=== PATIENT | male | born 1995 | race Caucasian/White ===

== ENCOUNTER 2020-01-19 02:49 | Emergency (ER) | payer BC, OTHER ==
[~2020-01-19] VITALS: Ht 172.7 cm; Wt 56.8 kg
[2020-01-19] MEDS ORDERED: ONDANSETRON 4 MG (ZOFRAN) ORAL DISSOLVE TAB PO STA (03:20)
[2020-01-19] MEDS ORDERED: LORazepam 0.5 MG (ATIVAN) TABLET PO STA (03:20)
--- NOTE | 2020-01-19 03:36 | ED Upper Extremity ---
General Chief Complaint: Upper Extremity Stated Complaint: ANXIETY/RT WRIST INJURY Nursing Triage Note: pt reports he is recently unemployed, went out tonight with friends and started drinking beer and whiskey, also reports he smoked some "weed". Pt called ems because he was having an anxiety attack and also fell and injured right wrist, ems checked him out and and his instructed ems he would bring him to ed Nursing Sepsis Screen: No Definite Risk History of Present Illness Date Seen by Provider: Jan 19, 2020 Time Seen by Provider: 03:10 Initial Comments The patient is a 24-year-old male who is otherwise healthy. He presents for medical screening. He states he recently lost his job and has been "going through some things." Evidently, earlier overnight he smoked some marijuana and drank some alcohol with friends. He states it is quite unusual for him to use substances like this. Prior to arrival he fell onto his outstretched right hand from ground level and is now reporting some right wrist discomfort, mild. He is able to range his right wrist fully. He denies hitting head or neck or any other part of his body in the fall and there are no signs of trauma anywhere. He states prior to arrival he began feeling very anxious and states he feels very anxious now. He appears quite anxious here in the emergency department. He is nauseated but has not vomited. EMS were evidently called to the scene after he fell and was feeling very anxious but he declined transport and his instead drove him to the emergency department by private vehicle for evaluation. He denies fevers, upper respiratory congestion/rhinorrhea, cough, shortness of breath, chest pain of any kind, abdominal pain, flank pain, back pain. He denies suicidal or homicidal ideation, paranoid delusions, recent use of substances aside from alcohol and marijuana. He is ambulatory with a narrow, steady gait, alert and oriented and in no acute distress and vital signs are completely appropriate here. Blood glucose appropriate here as well. Allergies and Home Medications Allergies Coded Allergies: No Known Drug Allergies (Unverified , 01/19/20) Patient Home Medication List Home Medication List Reviewed: Yes Review of Systems Constitutional: see HPI All Other Systems Reviewed Negative Unless Noted: Yes (Negative excepted noted.) Past Ihfvrwm-Qnusri-Bgngmr Hx Past Med/Social Hx: Reviewed Nursing Past Med/Soc Hx Patient Social History Alcohol Use: Occasionally Uses Alcohol Beverage of Choice: Beer, [place] Recreational Drug Use: Yes Drug of Choice: marijuana Type Used: Smokeless Tobacco 2nd Hand Smoke Exposure: No Recent Foreign Travel: No Contact w/Someone Who Travel: No Recent Infectious Disease Expo: No Recent Hopitalizations: No Physical Abuse: No Sexual Abuse: No Mistreated: No Fear: No Seasonal Allergies Seasonal Allergies: No Past Medical History Surgeries: No Respiratory: No Cardiac: No Neurological: No Genitourinary: No Gastrointestinal: No Musculoskeletal: No Endocrine: No HEENT: No Cancer: No Psychosocial: No Integumentary: No Blood Disorders: No Family Medical History Reviewed Nursing Family Hx Physical Exam Vital Signs Vital Signs - First Documented 01/19/20 03:14 Temp 36.3 Pulse 75 Resp 16 B/P (MAP) 142/70 (94) Pulse Ox 97 O2 Delivery Room Air Capillary Refill : Less Than 3 Seconds Height, Weight, BMI Height: '" Weight: lbs. oz. kg; 19.00 BMI Method: General Appearance: no apparent distress This is an anxiousappearing 24-year-old male who appears nontoxic and in no acute distress. Head is normocephalic and atraumatic. Neck is supple and nontender. Oropharynx is moist. Lungs are clear to auscultation at all stations. There is a normal S1 and S2 without rubs or gallops and capillary refill is appropriate, less than 2 seconds globally. Abdomen is soft, nontender and nondistended. Skin is warm and dry without cyanosis, clubbing or edema. Psychiatrically, the patient demonstrates appropriate mood and affect and is a lert. From a musculoskeletal standpoint, evaluation of the right upper extremity is remarkable for mild tenderness to palpation over the radial aspect of the right wrist. There is full active and passive range of motion at the right wrist. No discomfort with ranging of any other joints of the upper extremity. The right upper extremity is neurovascularly intact distally with strength 5 out of 5, sensation intact to light touch in all nerve distributions, radial pulse 2+, capillary refill less than 2 seconds, hand warm and well-perfused. Progress/Results/Core Measures Results/Orders Lab Results Laboratory Tests Test 01/19/20 03:32 Range/Units Glucometer 108 70-110 MG/DL My Orders Orders - CORNELL ROSARIO MD Lorazepam Tablet (Ativan Tablet) (01/19/20 03:20) Ondansetron Oral Dissolve Tab (Zofran (01/19/20 03:20) Accucheck Stat ONCE (01/19/20 03:24) Wrist 3 View Right (01/19/20 03:29) Vital Signs/I&O 01/19/20 03:14 Temp 36.3 Pulse 75 Resp 16 B/P (MAP) 142/70 (94) Pulse Ox 97 O2 Delivery Room Air Blood Pressure Mean: 94 Progress Progress Note : Time: 03:39 Progress Note 24-year-old male, otherwise healthy, who presents for evaluation of anxiety and nausea in the aftermath of using alcohol and marijuana earlier overnight. Patient is alert and oriented 4, not clinically intoxicated and ambulatory with a narrow, steady gait here in the emergency department. Vital signs entirely reassuring. Aside from anxiety and some right wrist tenderness after a fall, clinical examination is reassuring. No clear evidence of emergency condition is identified. We'll give a small dose of Ativan and some Zofran for nausea and we'll check plain films of the right wrist and will then reevaluate. 0350: Patient is feeling quite a bit better after small dose of Ativan and some Zofran here in the emergency department. He is no longer acutely anxious and is resting comfortably upon reassessment. He states he feels ready to go home. As above, he is alert and oriented and is ambulatory with a narrow, steady gait here in the emergency department. Not clinically intoxicated at this time. is here to drive him home. We will proceed with discharge. He understands that if he feels worse is that of better or develops other new symptoms of concern that he will need to return to the emergency department immediately for reevaluation. All questions are answered. Initial ECG Impression: 3rd Degree AV Block Departure Impression Primary Impression: Marijuana abuse Additional Impressions: Acute anxiety Contusion of right wrist, initial encounter Disposition: 01 HOME, SELF-CARE Condition: Improved Departure-Patient Inst. Referrals: NO,LOCAL PHYSICIAN (PCP/Family) Primary Care Physician Patient Instructions: Marijuana Use and Addiction (DC) Add. Discharge Instructions: Follow-up very closely with your primary care physician in the office in the next 1-2 days for reevaluation of your symptoms and a discussion of next best steps in care. Do not smoke marijuana to reduce serious risks to your health, and do not use alcohol to excess in the future. Drink plenty of fluids and get plenty of rest. Return to the emergency department right away with worsening symptoms of any kind or with any other new symptoms of concern. CORNELL ROSARIO MD Jan 19, 2020 03:36
[2020-01-19 03:53] VITALS: BP 142/70
--- NOTE | 2020-01-19 07:23 | Diagnostic Imaging Report ---
INDICATION: Right wrist pain. Fall. FINDINGS: 3 views. There are no fractures or dislocation. Articulating surfaces are smooth. Joint spaces are well-maintained. IMPRESSION: Negative right wrist. Dictated by: Dictated on workstation # [id number]
== END 2020-01-19 03:53 | disposition home or self-care (01) ==
LOC: ER FS 02:56
DX: S60.211A Contusion of right wrist, initial encounter (principal); F41.9 Anxiety disorder, unspecified; F12.10 Cannabis abuse, uncomplicated; W18.39XA Other fall on same level, initial encounter
CPT/HCPCS: 73110; 82962

== ENCOUNTER 2021-12-12 03:09 | Emergency (ER) | payer SELFPAY ==
[2021-12-12] MEDS ORDERED: NS IV 1000 ML 1,000 ML IV STA (03:12)
[2021-12-12] MEDS ORDERED: ONDANSETRON 4 MG/2 ML (SDV) Z0FRAN IVP ONE (03:15)
--- NOTE | 2021-12-12 03:23 | ED General ---
General Chief Complaint: General Problems/Pain Stated Complaint: SOB Source of Information: Patient Exam Limitations: No Limitations History of Present Illness Date Seen by Provider: Dec 12, 2021 Time Seen by Provider: 03:09 Initial Comments 25yoM with PMH of anxiety coming in due to feeling SOA. [place] and his spouse was driving him home about an hour prior to arrival. He started to get tunnel vision and started to breathe rapidly. He felt very SOA during that time. Denied any chest pain associated with it. Denies ever having this happen before. Denies any recent surgery, cough or hemoptysis, fever, leg swelling or pain, history of DVT or PE, hormone use, history of cancer, recent fever, or any other concerns. Did not use any drugs tonight. He does not smoke, does not have any cardiac history, no lung history, and is otherwise fairly healthy. Started feeling nauseous on arrival here. Before the interview was over, he says he does not feel short of breath anymore. Allergies and Home Medications Allergies Coded Allergies: No Known Drug Allergies (Unverified , 01/19/20) Patient Home Medication List Home Medication List Reviewed: Yes Review of Systems Review of Systems Constitutional: No fever EENTM: no symptoms reported Respiratory: short of breath Cardiovascular: no symptoms reported Gastrointestinal: nausea Genitourinary: no symptoms reported Musculoskeletal: no symptoms reported Skin: no symptoms reported Psychiatric/Neurological: No Symptoms Reported Hematologic/Lymphatic: No Symptoms Reported Immunological/Allergic: no symptoms reported All Other Systems Reviewed Negative Unless Noted: Yes Past Eiqpeba-Nyedhx-Vrdhax Hx Patient Social History Tobacco Use?: No Seasonal Allergies Seasonal Allergies: No Past Medical History Surgeries: Yes Orthopedic (shoulder) Respiratory: No Cardiac: No Neurological: No Genitourinary: No Gastrointestinal: No Musculoskeletal: No Endocrine: No HEENT: No Cancer: No Psychosocial: No Integumentary: No Blood Disorders: No Physical Exam Vital Signs Vital Signs - First Documented 12/12/21 03:09 Temp 36.0 Pulse 90 Resp 20 B/P (MAP) 137/72 (93) Pulse Ox 100 O2 Delivery Room Air Capillary Refill : Height, Weight, BMI Height: '" Weight: lbs. oz. kg; 19.00 BMI Method: General Appearance: WD/WN, Anxious, Other (breathing very rapidly) Eyes: Bilateral Eye Normal Inspection HEENT: PERRL/EOMI, Normal ENT Inspection, Pharynx Normal Neck: Full Range of Motion, Normal Inspection, Non Tender, Supple Respiratory: Chest Non Tender, Lungs Clear, Normal Breath Sounds, No Accessory Muscle Use, Other (breathing rapidly) Cardiovascular: Regular Rate, Rhythm, No Edema, Normal Peripheral Pulses Gastrointestinal: Normal Bowel Sounds, Non Tender, Soft; No Distended, No Guarding Back: Normal Inspection, No CVA Tenderness Extremity: Normal Capillary Refill, Normal Inspection, Normal Range of Motion, Non Tender, No Calf Tenderness, No Pedal Edema Neurologic/Psychiatric: Alert, Oriented x3, No Motor/Sensory Deficits, Normal Mood/Affect, Other (normal gait) Skin: Normal Color, Warm/Dry Lymphatic: No Adenopathy Progress/Results/Core Measures Suspected Sepsis SIRS Temperature: Pulse: Respiratory Rate: Laboratory Tests 12/12/21 03:19: White Blood Count 8.0 Blood Pressure / Mean: Laboratory Tests 12/12/21 03:19: Creatinine 0.82, INR Comment 1.1, Platelet Count 320, Total Bilirubin 0.6 Results/Orders Lab Results Laboratory Tests Test 12/12/21 03:19 Range/Units White Blood Count 8.0 4.3-11.0 10^3/uL Red Blood Count 4.66 4.30-5.52 10^6/uL Hemoglobin 14.0 13.3-17.7 g/dL Hematocrit 40 40-54 % Mean Corpuscular Volume 85 80-99 fL Mean Corpuscular Hemoglobin 30 25-34 pg Mean Corpuscular Hemoglobin Concent 35 32-36 g/dL Red Cell Distribution Width 12.6 10.0-14.5 % Platelet Count 320 130-400 10^3/uL Mean Platelet Volume 10.9 9.0-12.2 fL Neutrophils (%) (Auto) 53 42-75 % Lymphocytes (%) (Auto) 40 12-44 % Monocytes (%) (Auto) 6 0-12 % Eosinophils (%) (Auto) 1 0-10 % Basophils (%) (Auto) 0 0-10 % Neutrophils # (Auto) 4.2 1.8-7.8 X 10^3 Lymphocytes # (Auto) 3.2 1.0-4.0 X 10^3 Monocytes # (Auto) 0.5 0.0-1.0 X 10^3 Eosinophils # (Auto) 0.0 0.0-0.3 10^3/uL Basophils # (Auto) 0.0 0.0-0.1 10^3/uL Prothrombin Time 15.1 H 12.2-14.7 SEC INR Comment 1.1 0.8-1.4 Sodium Level 141 135-145 MMOL/L Potassium Level 3.1 L 3.6-5.0 MMOL/L Chloride Level 104 98-107 MMOL/L Carbon Dioxide Level 18 L 21-32 MMOL/L Anion Gap 19 H 5-14 MMOL/L Blood Urea Nitrogen 8 7-18 MG/DL Creatinine 0.82 0.60-1.30 MG/DL Estimat Glomerular Filtration Rate 124 BUN/Creatinine Ratio 10 Glucose Level 134 H 70-105 MG/DL Calcium Level 9.6 8.5-10.1 MG/DL Corrected Calcium 8.5-10.1 MG/DL Magnesium Level 2.1 1.6-2.4 MG/DL Total Bilirubin 0.6 0.1-1.0 MG/DL Aspartate Amino Transf (AST/SGOT) 18 5-34 U/L Alanine Aminotransferase (ALT/SGPT) 17 0-55 U/L Alkaline Phosphatase 92 40-136 U/L Troponin I < 0.30 <0.30 NG/ML Total Protein 7.5 6.4-8.2 GM/DL Albumin 4.8 H 3.2-4.5 GM/DL Lipase 18 8-78 U/L My Orders Orders - TEOFILO MARIE MD Cbc With Automated Diff (12/12/21 03:12) Comprehensive Metabolic Panel (12/12/21 03:12) Lipase (12/12/21 03:12) Magnesium (12/12/21 03:12) Protime With Inr (12/12/21 03:12) Troponin I Fs (12/12/21 03:12) Ondansetron Injection (Zofran Injectio (12/12/21 03:15) Ns Iv 1000 Ml (Sodium Chloride 0.9%) (12/12/21 03:12) Chest 1 View Ap/Pa Only (12/12/21 03:14) Ed Iv/Invasive Line Start (12/12/21 03:14) Ekg Tracing (12/12/21 03:14) Monitor-Rhythm Ecg Trace Only (12/12/21 03:14) Ed Iv/Invasive Line Start (12/12/21 03:15) Lorazepam Tablet (Ativan Tablet) (12/12/21 03:52) Medications Given in ED Current Medications Medications Dose Ordered Sig/Aden Route Start Time Stop Time Status Last Admin Dose Admin Ondansetron HCl 4 mg ONCE ONCE IVP 12/12/21 03:15 12/12/21 03:17 DC 12/12/21 03:18 4 MG Vital Signs/I&O 12/12/21 03:09 Temp 36.0 Pulse 90 Resp 20 B/P (MAP) 137/72 (93) Pulse Ox 100 O2 Delivery Room Air Capillary Refill : Progress Note : Progress Note 25-year-old male with above history coming in feeling short of breath with television. ABCs were intact and vitals are stable on presentation although his respiratory rate was very fast. He started breathing rapidly until he had to vomit. Immediately after starting to vomit he started breathing at a normal rate and says the episode was over and he feels better. EKG with no ischemic changes, chest x-ray clear on my interpretation, an IV was placed and basic labs were obtained including cardiac biomarkers. His troponin is negative. He is low risk for PE and after the episode he is essentially back to normal. I suspect this is a panic attack based on other things being negative. I believe he is stable for discharge with outpatient follow-up. He was sent home with strict return precautions. ECG Initial ECG Impression Date: Dec 12, 2021 Initial ECG Impression Time: 03:21 Initial ECG Rate: 85 Initial ECG Rhythm: Normal Sinus Comment Narrow QRS, normal axis, no significant ST changes or T wave abnormalities Departure Impression Primary Impression: Dyspnea Qualified Codes: R06.02 - Shortness of breath Disposition: 01 HOME, SELF-CARE Condition: Improved Departure-Patient Inst. Decision time for Depature: 03:54 Referrals: NO,LOCAL PHYSICIAN (PCP/Family) Primary Care Physician Patient Instructions: Shortness of Breath (Dyspnea) Add. Discharge Instructions: Your physical exam was normal with clear sounding lungs. Your chest x-ray was normal. Your labs looked good and it does not appear like there is anything going on with your heart or lungs that is concerning. This is likely reaction to either something that you drink that was bad or just a fluke that will get better. Follow-up with your primary doctor in the next day or so if things are not improving. Scripts Ondansetron (Ondansetron Odt) 4 Mg Tab.rapdis 4 MG PO Q6H PRN for NAUSEA/VOMITING-1ST LINE for 5 Days, #20 TAB Prov: TEOFILO MARIE MD 12/12/21 Work/School Note: Work Release Form Date Seen in the Emergency Department: Dec 12, 2021 Return to Work: Dec 13, 2021 Restrictions: No Restrictions TEOFILO MARIE MD Dec 12, 2021 03:23
[2021-12-12 03:26] LABS: BASOPHILS % (AUTO) 0 % (0-10); EOSINOPHILS % (AUTO) 1 % (0-10); HEMATOCRIT 40 % (40-54); LYMPHOCYTES # (AUTO) 3.2 X 10^3 (1.0-4.0); LYMPHOCYTES % (AUTO) 40 % (12-44); MEAN CORPUSCULAR HEMOGLOBIN 30 pg (25-34); MEAN CORPUSCULAR HGB CONC 35 g/dL (32-36); MEAN CORPUSCULAR VOLUME 85 fL (80-99); MEAN PLATELET VOLUME 10.9 fL (9.0-12.2); MONOCYTES # (AUTO) 0.5 X 10^3 (0.0-1.0); MONOCYTES % (AUTO) 6 % (0-12); NEUTROPHILS # (AUTO) 4.2 X 10^3 (1.8-7.8); NEUTROPHILS % (AUTO) 53 % (42-75); PLATELET COUNT 320 10^3/uL (130-400)
[2021-12-12 03:34] LABS: INR 1.1 (0.8-1.4); PROTHROMBIN TIME PATIENT 15.1 SEC (12.2-14.7)
[2021-12-12 03:44] LABS: ALANINE AMINOTRANSFERASE 17 U/L (0-55); ALBUMIN 4.8 GM/DL (3.2-4.5); ALKALINE PHOSPHATASE 92 U/L (40-136); BILIRUBIN,TOTAL 0.6 MG/DL (0.1-1.0); BUN/CREATININE RATIO 10; CALCIUM 9.6 MG/DL (8.5-10.1); CARBON DIOXIDE 18 MMOL/L (21-32); CHLORIDE 104 MMOL/L (98-107); CREATININE SERUM 0.82 MG/DL (0.60-1.30); GFR ESTIMATED 124; GLUCOSE 134 MG/DL (70-105); LIPASE 18 U/L (8-78); MAGNESIUM 2.1 MG/DL (1.6-2.4); POTASSIUM 3.1 MMOL/L (3.6-5.0); SODIUM 141 MMOL/L (135-145); TOTAL PROTEIN 7.5 GM/DL (6.4-8.2)
[2021-12-12] MEDS ORDERED: LORazepam 0.5 MG (ATIVAN) TABLET PO STA (03:52)
[2021-12-12] MEDS ORDERED: ONDA4TAB11 PO (03:56)
[2021-12-12 03:58] VITALS: BP 110/72
--- NOTE | 2021-12-12 06:48 | Diagnostic Imaging Report ---
INDICATION: Shortness of breath COMPARISON: None available. TECHNIQUE: Single radiograph of the chest dated 12/12/2021 FINDINGS: The cardiac silhouette is within normal limits in size. No significant pulmonary vascular congestion. The lungs are clear. No pleural effusion. No pneumothorax. No acute osseous abnormality. IMPRESSION: No acute cardiopulmonary abnormality. Dictated by: Dictated on workstation # [id number]
== END 2021-12-12 04:03 | disposition home or self-care (01) ==
LOC: EDUNIT# 03:09 → ER FS 03:10
DX: R06.00 Dyspnea, unspecified (principal); Z28.310 Unvaccinated for COVID-19
CPT/HCPCS: 36415; 71045; 80053; 83690; 83735; 84484; 85025; 85610; 93005; 93041